=== PATIENT | male | born 1960 | race Caucasian/White ===

== ENCOUNTER 2020-04-30 13:57 | Outpatient (CLI) | payer OTHER, SELFPAY ==
--- NOTE | 2020-05-01 09:00 | WPDPFTINT ---
PFT Interpretation This is a pulmonary function test with pre and post-bronchodilator spirometry, plethysmography and diffusing capacity. The test was performed and results interpreted in accordance with the 2019 and 2005 ATS/ERS Task Force guidelines respectively using the Global Lung Function Initiative-2012 reference equations. Quality of the pre bronchodilator maneuver was Grade A and post bronchodilator spirometry maneuver was Grade A. Findings: Spirometry:There is decreased maximal expiratory airflow at middle and low lung volumes with a concave expiratory flow tracing. The contour the inspiratory flow tracing is normal. The pre bronchodilator FVC is 4.21 L, 82% predicted. The pre bronchodilator FEV1 is 2.73, 70% predicted. The FEV1: FVC ratio is 65%. The post bronchodilator FVC is 4.24 L, representing 1% increase. The post bronchodilator FEV1 is 2.88 L, representing a 6% increase. Plethysmography: The total lung capacity is 7.32 L, 97% predicted. The functional residual capacity is 3.94 L, 99% predicted. The residual volume is 2.72 L, 113% predicted. Diffusing capacity: The absolute diffusion capacity is 18.8, 63% predicted. The diffusing capacity corrected for alveolar volume is 3.76, 92% predicted. Impression: There is a mild obstructive abnormality without significant improvement after inhaling a single dose of albuterol. The lung volumes are normal. The absolute diffusing capacity is mildly decreased but normalizes when corrected for alveolar volume. There are no prior studies for comparison
== END 2020-04-30 13:58 | disposition home or self-care (01) ==
PROVIDERS: PCP Family Medicine Adolescent Medicine; Visit Provider Physician Assistant
DX: R06.02 Shortness of breath (principal)
CPT/HCPCS: 94060; 94726; 94729